=== PATIENT | female | born 1935 | race Caucasian/White ===

== ENCOUNTER 2021-01-01 11:43 | Day surgery (SDC) | payer MEDICARE ==
[~2021-01-01] VITALS: Ht 160 cm; Wt 57.0 kg
[2021-01-01 12:43] VITALS: BP 132/59
[2021-01-01] MEDS ORDERED: FURO20TA3 PO (12:56)
[2021-01-01] MEDS ORDERED: SODIUM CHLORIDE 0.9% 1,000 ML IV SCH (13:00)
[2021-01-01] MEDS ORDERED: PLEASE ENTER HEIGHT AND WEIGHT MC SCH (13:00)
[2021-01-01] MEDS ORDERED: PLEASE ENTER ALLERGIES MC SCH (13:00)
[2021-01-01] MEDS ORDERED: DIPHENHYDRAMINE 50 MG/ML, 1ML IVPush ONE (13:00)
[2021-01-01] MEDS ORDERED: VITA100C10 PO (13:03)
[2021-01-01] MEDS ORDERED: FERR325T18 PO (13:03)
[2021-01-01] MEDS ORDERED: COD500OI PO (13:03)
[2021-01-01] MEDS ORDERED: LEVO125T5 PO (13:03)
[2021-01-01] MEDS ORDERED: PIRO20CA2 PO (13:03)
[2021-01-01] MEDS ORDERED: ASCO100018 PO (13:03)
[2021-01-01] MEDS ORDERED: POTA10CA PO (13:03)
[2021-01-01] MEDS ORDERED: CHOL400T12 PO (13:03)
[2021-01-01] MEDS ORDERED: OMEP-110 PO (13:03)
[2021-01-01] MEDS ORDERED: GABA600T7 PO (13:03)
[2021-01-01] MEDS ORDERED: AMIT50TA PO (13:03)
[2021-01-01] MEDS ORDERED: MISO100T7 PO (13:03)
[2021-01-01] MEDS ORDERED: FENTANYL PF 100 MCG/2ML ONE (13:18)
[2021-01-01] MEDS ORDERED: LIDOCAINE-MPF 1%, 5ML ONE (13:18)
[2021-01-01] MEDS ORDERED: MIDAZOLAM 1 MG/ML, 2ML ONE (13:18)
[2021-01-01] MEDS ORDERED: DIPHENHYDRAMINE 50 MG/ML, 1ML ONE (13:18)
[2021-01-01 13:25] LABS: ANION GAP 4 mmol/L (5-15); BASOPHILS % (AUTO) 2 % (0-1); CALCIUM 9.3 mg/dL (8.5-10.1); CHLORIDE 105 mmol/L (98-107); EOSINOPHILS % (AUTO) 4 % (1-7); LYMPHOCYTES % (AUTO) 29 % (22-44); MEAN CORPUSCULAR HEMOGLOBIN 32.1 pg (27.0-34.8); MEAN CORPUSCULAR HGB CONC 33.5 g/dL (32.4-35.8); MEAN PLATELET VOLUME 9.4 fL (7.4-10.4); MONOCYTES % (AUTO) 7 % (2-9); NEUTROPHILS % (AUTO) 59 % (42-75); PLATELET COUNT 373 x10^3/uL (130-400); RED BLOOD COUNT 3.78 x10^6/uL (3.82-5.3); RED CELL DISTRIBUTION WIDTH 13.8 % (9.6-15.2)
[2021-01-01 13:26] LABS: MD NO
[2021-01-01] MEDS ORDERED: LIDOCAINE 2%, 20ML ONE (13:55)
== END 2021-01-01 17:15 | disposition home or self-care (01) ==
LOC: CACL 11:43
PROVIDERS: ATTEND Internal Medicine Cardiovascular Disease
DX: I27.21 Secondary pulmonary arterial hypertension (principal); Z88.1 Allergy status to other antibiotic agents; Z79.899 Other long term (current) drug therapy; Z79.82 Long term (current) use of aspirin; Z87.891 Personal history of nicotine dependence
CPT/HCPCS: 36415; 80048; 82330; 82803; 82947; 83880; 84132; 84295; 85014; 85025; 93451; 99156; C1769; C1894; J1200; J2250; J3010